=== PATIENT | female | born 2005 | race Two or more races ===

== ENCOUNTER 2023-12-26 11:26 | Emergency (ER) | payer BC ==
[2023-12-26] MEDS ORDERED: Prochlorperazine 10 MG/2 ML VIAL IVP SCH (12:30)
[2023-12-26 12:43] LABS: #Basophils 0.04 10x3/uL (0.0-0.2); %Basophils 0.5 % (0.0-1.0); %Eosinophils 1.3 % (0.0-10.0); %Lymphocytes 14.5 % (28.0-48.0); %Monocytes 2.7 % (0.0-4.0); %Neutrophils 80.8 % (31.0-61.0); Hematocrit 39.4 % (36.0-47.0); Hemoglobin 12.9 g/dL (12.0-16.0); Mean Corpuscular HGB CONC 32.7 g/dL (32.0-36.0); Mean Corpuscular Hemoglobin 30.6 pg (25.0-35.0); Mean Corpuscular Volume 93.6 fL (78.0-98.0); Mean Platelet Volume 10.6 fL (7.4-10.4); Platelet Count 259 10x3/uL (130-400); RBC Distribution Width 13.2 % (11.5-14.5); Red Blood Cell (RBC) Count 4.21 mill/uL (4.00-5.20)
[2023-12-26] MEDS ORDERED: Ketorolac Tromethamine 30 MG (1 mL) VIAL ONE (12:56)
[2023-12-26] MEDS ORDERED: diphenhydrAMINE 50 MG/ML VIAL ONE (12:56)
[2023-12-26] MEDS ORDERED: Prochlorperazine 10 MG/2 ML VIAL ONE (12:56)
[2023-12-26 13:16] LABS: BHCG - Serum Negative (NEGATIVE); Pregs Control Background? CLEAR/WHITE (CLR/WHITE); Pregs Control Bar Appear? YES (CONTROL BAR)
[2023-12-26 13:22] LABS: ALT (SGPT) 9 U/L (8-55); AST (SGOT) 15 U/L (5-34); Albumin 4.3 g/dL (3.5-5.0); Alkaline Phosphatase 50 U/L (40-100); Anion Gap 14 mmol/L (10-20); BUN (Urea Nitrogen) 12 mg/dL (7.0-18.7); Bilirubin, Total 0.3 mg/dL (0.2-1.2); Calc. Creatinine Clearance 0 mL/min (70-130); Carbon Dioxide 21 mmol/L (22-29); Chloride 106 mmol/L (98-107); Estimated GFR 117; Globulin 2.7 g/dL (2.4-3.5); Glucose 106 mg/dL (70-105); Sodium 137 mmol/L (136-145)
[2023-12-26 13:42] LABS: Band 3 % (5-11); Burr Cells SLIGHT = 2-5 cells HPF (0-1); Large Platelets 1.7 % (0-5); Lymphocytes 12 % (28-48); Monocytes 3 % (0-4); Neutrophil 82 % (31-61); Platelet Adequacy Comment Platelets Decreased; Polychromasia SLIGHT = 2-3 cells HPF (0-2); Smudge Cells 3.4 %
[2023-12-26 14:37] LABS: Bilirubin Negative (Negative); Blood, Urine Negative (Negative); CAUTI Indications for Culture Pelvic or flank pain; Clarity Clear (Clear); Glucose, Urine (Dipstick) Normal (Negative); Ketone, Urine 10 mg/dL (Negative); Leukocyte Negative Leu/uL (Negative); Nitrite Negative (Negative); Protein, Urine (Dipstick) Negative (Neg-Trace); RBC/HPF 0-3 HPF (0-3); Specific Gravity, Urine 1.014 (1.002-1.036); Squamous Epithelial 0-3 HPF (0-3); Urobilinogen Normal mg/dL (Less than 2); WBC/HPF 0-3 HPF (0-3); pH, Urine 6.5 (5.0-9.0)
[2023-12-26 14:38] LABS: Bacteria/HPF Rare-Few HPF (None Seen)
[2023-12-26 14:39] LABS: Urine Culture Reflex No No
== END 2023-12-26 15:09 | disposition home or self-care (01) ==
LOC: ERS 11:26
DX: G43.909 Migraine, unspecified, not intractable, without status migrainosus (principal); F17.290 Nicotine dependence, other tobacco product, uncomplicated
CPT/HCPCS: 36416; 80053; 81001; 84703; 85025; 96365; 96375; J0780; J1200; J1885